=== PATIENT | male | born 1990 | race Caucasian/White ===

== ENCOUNTER 2017-03-17 04:12 | Emergency (ER) | payer BC, SELFPAY ==
[~2017-03-17] VITALS: Ht 180.3 cm; Wt 81.8 kg
[2017-03-17 04:13] VITALS: BP 133/80
== END 2017-03-17 06:44 | disposition left against medical advice (07) ==
LOC: M ED 04:12
DX: Z53.21 Procedure and treatment not carried out due to patient leaving prior to being seen by health care provider (principal)

== ENCOUNTER 2017-11-06 17:47 | Emergency (ER) | payer SELFPAY ==
[2017-11-06] MEDS: PERCOCET 5MG/325MG TAB PO (21:45)
[2017-11-06] MEDS: LIDOCAINE 1% MDV 20ML VIAL IM (21:45)
[2017-11-06] MEDS: ADACEL/BOOSTRIX VACCINE (DIPHTH/PERTUSS/ACELL/TETANUS)0.5ML SYR (90715) IM (22:00)
[2017-11-06] MEDS: NORCO 5/325MG TABLET (BULK FOR ED) PO (22:45)
[2017-11-06] MEDS: AUGMENTIN 875 MG TAB PO (22:45)
== END 2017-11-06 22:53 | disposition home or self-care (01) ==
LOC: M ED 17:47
DX: S61.215A Laceration without foreign body of left ring finger without damage to nail, initial encounter (principal); W26.0XXA Contact with knife, initial encounter; Y92.89 Other specified places as the place of occurrence of the external cause; F17.200 Nicotine dependence, unspecified, uncomplicated
CPT/HCPCS: 90715

== ENCOUNTER 2018-05-25 13:24 | Emergency (ER) | payer OTHER, SELFPAY ==
[~2018-05-25] VITALS: Ht 180.3 cm; Wt 80.9 kg
[~2018-05-25 13:24] MED LIST: AUGM875T28 PO
[2018-05-25 14:35] LABS: INFLUENZA A AMPLIFICATION NEGATIVE (NEGATIVE); INFLUENZA B AMPLIFICATION NEGATIVE (NEGATIVE)
[2018-05-25] MEDS ORDERED: MAGICMW SSP (14:57)
[2018-05-25 15:05] VITALS: BP 133/92
== END 2018-05-25 15:06 | disposition home or self-care (01) ==
LOC: M ED 13:24
DX: J02.9 Acute pharyngitis, unspecified (principal); R09.81 Nasal congestion; Z72.0 Tobacco use

== ENCOUNTER 2020-12-15 12:06 | Emergency (ER) | payer SELFPAY ==
[~2020-12-15] VITALS: Ht 180.3 cm; Wt 82.0 kg
[2020-12-15 12:06] VITALS: BP 133/92
[~2020-12-15 12:06] MED LIST changes: +MAGICMW SSP
== END 2020-12-15 12:49 | disposition left against medical advice (07) ==
LOC: M ED 12:06
DX: Z53.29 Procedure and treatment not carried out because of patient's decision for other reasons (principal)

== ENCOUNTER 2021-05-29 16:57 | Emergency (ER) | payer MEDICAID ==
[~2021-05-29] VITALS: Ht 180.3 cm; Wt 73.0 kg
[~2021-05-29 16:57] MED LIST changes: +CEPH500C PO
[2021-05-29 18:49] VITALS: BP 130/89
== END 2021-05-29 18:53 | disposition home or self-care (01) ==
LOC: M ED 16:57
DX: Z48.02 Encounter for removal of sutures (principal); F12.20 Cannabis dependence, uncomplicated

== ENCOUNTER 2022-04-20 21:03 | Emergency (ER) | payer MEDICAID, OTHER ==
[~2022-04-20] VITALS: Ht 180.3 cm; Wt 78.5 kg
[2022-04-20 21:05] VITALS: BP 158/96
== END 2022-04-21 00:51 | disposition left against medical advice (07) ==
LOC: M ED 21:03
DX: Z53.21 Procedure and treatment not carried out due to patient leaving prior to being seen by health care provider (principal)

== ENCOUNTER 2023-09-04 12:19 | Emergency (ER) | payer OTHER ==
[~2023-09-04] VITALS: Ht 180.3 cm; Wt 74.1 kg
[2023-09-04 12:20] VITALS: BP 147/95; TEMP 97.2; O2SAT 98
== END 2023-09-04 15:33 | disposition home or self-care (01) ==
LOC: M ED 12:19
DX: S91.332A Puncture wound without foreign body, left foot, initial encounter (principal); W20.8XXA Other cause of strike by thrown, projected or falling object, initial encounter; Y92.9 Unspecified place or not applicable; Y93.9 Activity, unspecified; Y99.0 Civilian activity done for income or pay; F17.290 Nicotine dependence, other tobacco product, uncomplicated; F17.200 Nicotine dependence, unspecified, uncomplicated